=== PATIENT | female | born 1970 | race Two or more races ===

== ENCOUNTER → 2016-06-20 | Outpatient (CLI) | payer OTHER | LOC: RAD 15:52 | PROVIDERS: ATTEND Internal Medicine | DX: R51 Headache (principal) | CPT/HCPCS: 70450 ==

== ENCOUNTER → 2019-06-09 | Outpatient (CLI) | payer OTHER ==
--- NOTE | 2019-06-09 15:52 | RADIOLOGY REPORT (SQ) ---
EXAM DESCRIPTION: HAND RIGHT 2 VIEWS COMPLETED DATE/TIME: 06/09/2019 12:11 pm REASON FOR STUDY: POLYARTHRITIS M13.0 POLYARTHRITIS, UNSPECIFIED COMPARISON: None. EXAM PARAMETERS: NUMBER OF VIEWS: Two view. TECHNIQUE: AP and lateral radiographic images acquired of the right hand. LIMITATIONS: None. FINDINGS: MINERALIZATION: Normal. BONES: No acute fracture or dislocation. No worrisome bone lesions. JOINTS: No effusions. SOFT TISSUES: No soft tissue swelling. No foreign body. OTHER: No other significant finding. IMPRESSION: NEGATIVE STUDY OF THE RIGHT HAND. NO RADIOGRAPHIC EVIDENCE OF ACUTE INJURY. TECHNICAL DOCUMENTATION: JOB ID: [id number] [employer]- All Rights Reserved Reading location - IP/workstation name: [email or web address]
== END ==
LOC: RAD 11:54
PROVIDERS: ATTEND Internal Medicine
DX: M13.0 Polyarthritis, unspecified (principal)

== ENCOUNTER 2020-01-13 12:14 | Outpatient (CLI) | payer OTHER ==
[~2020-01-13 12:14] MED LIST: FERRIC CARBOXYMALTOSE 750 MG in NORMAL SALINE 250 ML IV PRN
[2020-01-13 12:27] VITALS: BP 118/71
== END 2020-01-13 13:30 | disposition home or self-care (01) ==
LOC: II 12:14 → 5TH 12:16 → II 13:30
PROVIDERS: ATTEND Internal Medicine
DX: E61.1 Iron deficiency (principal); Z98.84 Bariatric surgery status
CPT/HCPCS: 96374; J7050; J1439

== ENCOUNTER 2020-01-20 09:42 | Outpatient (CLI) | payer OTHER ==
[2020-01-20 10:19] VITALS: BP 111/75
== END 2020-01-20 10:45 | disposition home or self-care (01) ==
LOC: II 09:42 → 5TH 09:49 → II 10:45
PROVIDERS: ATTEND Internal Medicine
DX: E61.1 Iron deficiency (principal); Z98.84 Bariatric surgery status
CPT/HCPCS: 96374; J7050; J1439